=== PATIENT | male | born 1955 | race Caucasian/White ===

== ENCOUNTER 2017-07-03 08:31 | Day surgery (SDC) | payer BC ==
[2005-02-04 11:37] VITALS: BP 133/73
[2017-07-03] VITALS (10 sets, daily range): BP systolic 95–143; BP diastolic 51–75; PULSE 51–67; TEMP 97.7
[~2017-07-03] VITALS: Ht 172.7 cm; Wt 74.5 kg
[2017-07-03] MEDS ORDERED: OMEGA-3 1000 MG1 CAP PO (09:35)
[2017-07-03] MEDS ORDERED: B COMPLEX #11 TAB PO (09:36)
== END 2017-07-03 11:45 | disposition home or self-care (01) ==
LOC: SDCO 08:31
DX: Z12.11 Encounter for screening for malignant neoplasm of colon (principal); Z82.49 Family history of ischemic heart disease and other diseases of the circulatory system; Z80.42 Family history of malignant neoplasm of prostate
CPT/HCPCS: J2250; J3010

== ENCOUNTER 2017-08-27 05:32 | Day surgery (SDC) | payer BC ==
[2005-02-04 11:37] VITALS: BP 133/73
[~2017-08-27] VITALS: Ht 172.7 cm; Wt 75.0 kg
[2017-08-27] VITALS (10 sets, daily range): BP systolic 9–127; BP diastolic 50–82; PULSE 56–87; TEMP 97.2–98
[~2017-08-27 05:32] MED LIST: B COMPLEX #11 TAB PO; OMEGA-3 1000 MG1 CAP PO
[2017-08-27] MEDS ORDERED: STOOL SOFTENER100 M2 PO (06:35)
[2017-08-27] MEDS ORDERED: MULTI VITAMINS1 TAB PO (06:36)
[2017-08-27] MEDS ORDERED: VITAMIN C500 MG PO (06:48)
== END 2017-08-27 13:20 | disposition home or self-care (01) ==
LOC: SDCO 05:32
DX: K40.20 Bilateral inguinal hernia, without obstruction or gangrene, not specified as recurrent (principal)
CPT/HCPCS: A4314; C1781; J1100; J1885; J2405; J2704; J2710; J3010; J7050; J7120